=== PATIENT | female | born 1990 | race Hispanic/Latino ===

== ENCOUNTER 2019-09-18 07:48 | Emergency (ER) | payer SELFPAY ==
[~2019-09-18 07:48] MED LIST: PREN-114 PO; PREN1TAB80 PO
[2019-09-18 08:14] LABS: APPEARANCE,URINE CLOUDY (CLEAR); BILIRUBIN,URINE NEGATIVE (NEGATIVE); COLOR,URINE YELLOW (YELLOW); GLUCOSE, URINE (UA) NEGATIVE (NEGATIVE); KETONES,URINE NEGATIVE (NEGATIVE); LEUKOCYTE ESTERASE ,URINE LARGE (NEGATIVE); NITRATE,URINE NEGATIVE (NEGATIVE); OCCULT BLOOD,URINE SMALL (NEGATIVE); PROTEIN,URINE TRACE mg/dL (NEGATIVE); UROBILINOGEN,URINE 0.2 mg/dL (0.2-1.0)
[2019-09-18 08:31] LABS: HCG,QUAL RESULT NEGATIVE (NEGATIVE)
[2019-09-18 08:32] LABS: BACTERIA,URINE Few /HPF (None Seen); RBC,URINE 0-1 /HPF (0-1); SQUAMOUS EPITHELIAL CELL,UR Rare /HPF (0-2); WBC,URINE >100 /HPF (0-1)
[2019-09-18] MEDS ORDERED: CEFTRIAXONE SODIUM 1 GM ONE (10:09)
[2019-09-18] MEDS ORDERED: LIDOCAINE HCL 1% 20 ML VIAL ONE (10:10)
== END 2019-09-18 10:20 | disposition home or self-care (01) ==
LOC: EDH 07:48
DX: N39.0 Urinary tract infection, site not specified (principal); F41.9 Anxiety disorder, unspecified; Z98.890 Other specified postprocedural states
CPT/HCPCS: 81001; 81025; 87077; 87088; 87186; 96372; 99284; J0696

== ENCOUNTER 2020-06-30 11:18 | Emergency (ER) | payer MEDICAID ==
[2020-06-30] MEDS ORDERED: SODIUM CHLORIDE 0.9% 500ML 500 ML IV ONE (11:47)
[2020-06-30 12:01] LABS: BASOPHILS % (AUTO) 0.3 % (0.0-5.0); HEMATOCRIT 41.4 % (36-48); LYMPHOCYTES % (AUTO) 16.7 % (21.0-51.0); MEAN CORPUSCULAR HEMOGLOBIN 29.7 pg (27.0-33.0); MEAN CORPUSCULAR HGB CONC 33.8 g/dL (32.0-36.0); MEAN CORPUSCULAR VOLUME 87.9 fL (79-99); MONOCYTES % (AUTO) 9.3 % (3.0-13.0); NEUTROPHILS % (AUTO) 72.3 % (40.0-77.0); PLATELET COUNT (AUTO) 215 K/uL (130-400); RED BLOOD CELL COUNT(AUTO) 4.71 MIL/uL (4.00-5.50); RED CELL DISTRIBUTION WIDTH 13.2 % (11.0-15.5); WHITE BLOOD COUNT (AUTO) 7.2 K/uL (4.8-10.8)
[2020-06-30 12:04] LABS: APPEARANCE,URINE Cloudy (CLEAR); BILIRUBIN,URINE Negative (NEGATIVE); COLOR,URINE Yellow (YELLOW); GLUCOSE, URINE (UA) TRACE mg/dL (NEGATIVE); KETONES,URINE Negative (NEGATIVE); LEUKOCYTE ESTERASE ,URINE Negative (NEGATIVE); NITRATE,URINE Negative (NEGATIVE); OCCULT BLOOD,URINE Trace (NEGATIVE); PROTEIN,URINE Trace mg/dL (NEGATIVE)
[2020-06-30 12:05] LABS: HCG,QUAL RESULT POSITIVE (NEGATIVE)
[2020-06-30 12:12] LABS: CREATININE 0.8 mg/dL (0.5-1.5); POTASSIUM 3.2 mmol/L (3.5-5.1)
[2020-06-30 12:17] LABS: ALBUMIN 3.8 g/dL (3.5-5.0); BILIRUBIN,TOTAL 0.2 mg/dL (0.2-1.0); TOTAL PROTEIN, SERUM 7.4 g/dL (6.0-8.3)
[2020-06-30 12:22] LABS: BACTERIA,URINE Few /HPF (None Seen); RAPID GROUP A STREP NEGATIVE (NEGATIVE); RBC,URINE 0-1 /HPF (0-1); WBC,URINE 0-1 /HPF (0-1)
== END 2020-06-30 15:28 | disposition home or self-care (01) ==
LOC: EDH 11:18
DX: O98.511 Other viral diseases complicating pregnancy, first trimester (principal); U07.1 COVID-19; F41.9 Anxiety disorder, unspecified; Z98.890 Other specified postprocedural states; Z3A.01 Less than 8 weeks gestation of pregnancy
CPT/HCPCS: 36415; 80053; 81001; 81025; 85025; 87426; 87804 ×2; 87880; 96360; 99283; J7040

== ENCOUNTER 2020-07-01 15:06 | Observation (INO) | payer MEDICAID ==
[~2020-07-01] VITALS: Ht 157.5 cm; Wt 86.2 kg
[2020-07-01] MEDS ORDERED: ACETAMINOPHEN EXTRA STRENGTH 500 MG TABLET ONE (15:21)
[2020-07-01 15:54] LABS: APPEARANCE,URINE Clear (CLEAR); BASOPHILS % (AUTO) 0.2 % (0.0-5.0); BILIRUBIN,URINE Negative (NEGATIVE); COLOR,URINE Yellow (YELLOW); EOSINOPHILS % (AUTO) 1.7 % (0.0-8.0); GLUCOSE, URINE (UA) Negative (NEGATIVE); HEMATOCRIT 39.4 % (36-48); KETONES,URINE Negative (NEGATIVE); LEUKOCYTE ESTERASE ,URINE Trace (NEGATIVE); LYMPHOCYTES % (AUTO) 26.1 % (21.0-51.0); MEAN CORPUSCULAR HEMOGLOBIN 29.6 pg (27.0-33.0); MEAN CORPUSCULAR HGB CONC 33.5 g/dL (32.0-36.0); MEAN CORPUSCULAR VOLUME 88.3 fL (79-99); MONOCYTES % (AUTO) 8.3 % (3.0-13.0); NEUTROPHILS % (AUTO) 63.4 % (40.0-77.0); NITRATE,URINE Negative (NEGATIVE); OCCULT BLOOD,URINE Negative (NEGATIVE); PH,URINE 7.5 (5.0-8.0); PLATELET COUNT (AUTO) 229 K/uL (130-400); PROTEIN,URINE Negative (NEGATIVE); RED BLOOD CELL COUNT(AUTO) 4.46 MIL/uL (4.00-5.50); RED CELL DISTRIBUTION WIDTH 13.1 % (11.0-15.5); UROBILINOGEN,URINE 0.2 mg/dL (0.2-1.0); WHITE BLOOD COUNT (AUTO) 5.8 K/uL (4.8-10.8)
[2020-07-01 16:01] LABS: BACTERIA,URINE Rare /HPF (None Seen); RBC,URINE 0-1 /HPF (0-1); SQUAMOUS EPITHELIAL CELL,UR Few /HPF (0-2)
[2020-07-01 16:07] LABS: CREATININE 0.6 mg/dL (0.5-1.5); POTASSIUM 3.3 mmol/L (3.5-5.1)
[2020-07-01 16:37] LABS: ALBUMIN 3.7 g/dL (3.5-5.0); BILIRUBIN,TOTAL 0.2 mg/dL (0.2-1.0); TOTAL PROTEIN, SERUM 7.3 g/dL (6.0-8.3)
[2020-07-01] MEDS ORDERED: PROMETHAZINE HCL 25 MG/ML 1ML AMPULE IM PRN (20:30)
[2020-07-01] MEDS ORDERED: MEPERIDINE-PF 50 MG/ML SYG IM PRN (20:30)
[2020-07-01 22:00] VITALS: BP 127/75
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
--- NOTE | 2020-07-01 22:51 | NUR ---
CALLED DR SMITH RE:ORDER FOR IV FLUIDS. ORDERS RECEIVED
[2020-07-01] MEDS ORDERED: LACTATED RINGERS 1000ML 1,000 ML IV SCH (23:00)
--- NOTE | 2020-07-01 23:45 | NUR ---
TEDS APPLIED. LR INFUSING AT 125 ML/HR
[2020-07-02] VITALS: BP 134/68
--- NOTE | 2020-07-02 00:15 | NUR ---
PHENERGAN AND DEMEROL ADMINISTED FOR PAIN. 03/13
[2020-07-02] MEDS ORDERED: AZIT500T4 PO (01:19)
[2020-07-02] MEDS ORDERED: VIT (01:19)
[2020-07-02] MEDS ORDERED: ZINC50TA64 PO (01:19)
[2020-07-02 03:36] VITALS: BP 114/68
[2020-07-02 06:39] VITALS: BP 124/76
--- NOTE | 2020-07-02 06:41 | NUR ---
PAIN 12/12 . REFUSED PAIN MEDICATION AT THIS TIME
--- NOTE | 2020-07-02 07:10 | NUR ---
REPORT GIVEN TO EUGENIO NELSON
[2020-07-02 07:35] VITALS: BP 121/66
--- NOTE | 2020-07-02 08:55 | NUR ---
Dr. Cool at nurses station, gave report about the pt, she checked the chart and left. I called to her over the phone and she that pt is not under her care. At 904, I called Dr. Herbert and she gave an order that pt can go home and follow up with her OB doctor.
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
[2020-07-02 11:18] VITALS: BP 119/72
--- NOTE | 2020-07-02 11:18 | NUR ---
pt is discharged, verbal and written discharge instructions given. informed of the follow up appointment with her pcp tomorrow, no prescription given. pt voiced understanding to all things discussed. Addendum: 07/02/20 at 1305 by EUGENIO CATALAN RN Amended: Links added.
[2020-07-02] MEDS ORDERED: SODIUM CHLORIDE 0.9% 1000ML 1,000 ML IV ONE (12:09)
--- NOTE | 2020-07-02 12:10 | NUR ---
pt is dismissed in stable condition, brought to private car via wheelchair. Addendum: 07/02/20 at 1307 by EUGENIO CATALAN RN Amended: Links added.
== END 2020-07-02 12:10 | disposition home or self-care (01) ==
LOC: EDH 15:06 → EDHIP 15:07 → WSH 20:40
PROVIDERS: ADMIT Obstetrics & Gynecology; ATTEND Obstetrics & Gynecology
DX: O26.891 Other specified pregnancy related conditions, first trimester (principal); R10.30 Lower abdominal pain, unspecified; O21.0 Mild hyperemesis gravidarum; O98.511 Other viral diseases complicating pregnancy, first trimester; U07.1 COVID-19; O34.219 Maternal care for unspecified type scar from previous cesarean delivery; Z3A.01 Less than 8 weeks gestation of pregnancy
CPT/HCPCS: 36415 ×2; 76801; 80053; 81001; 83690; 84702 ×2; 85025; 86850; 86900; 86901; 96360; 96361; 96372; 99284; G0378 ×10; J2175; J2550; J7030